=== PATIENT | male | born 1990 | race Caucasian/White ===

== ENCOUNTER 2022-05-24 18:34 | Inpatient (IN) | payer SELFPAY ==
--- NOTE | 2022-05-24 | XR_ITS ---
WS: [id number] XR chest 1V 10929 REASON FOR EXAM: DONE IN ERROR, NO CHARGE TO PATIENT FINDINGS: The chest is unchanged compared to the chest is unchanged compared to 07/19/2011. The heart and mediastinum are within normal limits. Calcified granulomatous disease is present both hemithoraces. No acute pulmonary parenchymal or pleural disease. Mild thoracic scoliosis. XR/XR chest 1V [id number] IMPRESSION: No acute chest abnormality.
[2022-05-24 18:41] VITALS: BP 139/83; PULSE 76; RESP 12; TEMP 36.5; O2SAT 99
--- NOTE | 2022-05-24 18:59 | ED_ITS ---
HPI - General Adult General: Chief complaint: Psychiatric Symptoms Stated complaint: MHE Time Seen by Provider: 05/24/22 18:39 History of Present Illness: HPI: [32]yo patient w/ hx of depression BIBA for SI with severe depression. No activep jarred currently On arrival, the patient is AAOx3 and cooperative with my evaluation. No focal complaints of chest pain, shortness of breath, palpitations, N/V, focal GI/ complaints. Currently denies HI. No complaints of hallucinations. Onset: acute on chronic Duration: ongoing Location: home Severity: severe Associated symptoms: Deny chest pain, dyspnea, nausea, rash, palpitations or vomiting Review of Systems Const: Denies: fever(s) or chills Eyes: Denies: change in vision ENMT: Denies: mouth pain Card: Denies: chest pain or palpitations Resp: Denies: dyspnea or non-productive cough GI: Denies: abdominal pain, nausea, vomiting or diarrhea : Denies: dysuria Musc: Denies: extremity pain Skin/Breast: Denies: rash or new lesions Neuro: Denies: weakness in extremities Psych: Reports: depression and suicidal ideation Zaid/Lymph: Denies: easy bruising PFSH ED PFSH: Medical History Depression Social History Smoking and tobacco status: never smoked Alcohol intake: never Substance/Drug Use: former Physical Exam Const: COMMON NORMALS: alert HENMT: COMMON NORMALS: atraumatic HEAD & SCALP: atraumatic MOUTH: moist mucous membranes not abnormal Eye: COMMON NORMALS: EOMs intact bilaterally and conjunctivae normal CONJUNCTIVA: Yes conjunctivae normal Neck/C-Spine: COMMON NORMALS: full ROM and supple Resp: COMMON NORMALS: normal respiratory effort and clear to auscultation bilaterally AUSCULTATION: clear to auscultation bilaterally Cardio: COMMON NORMALS: regular rate RATE: regular rate GI: COMMON NORMALS: Soft to palpation and non-tender PALPATION: Yes Soft to palpation Extremity: COMMON NORMALS: full ROM Neuro: SENSORIUM/ORIENTATION: Yes alert MOTOR EXAM: No Abnormal motor strength present and Other motor observations present (no focal motor deficits) Psych: COMMON NORMALS: speech normal SPEECH: Yes normal speech MOOD & AFFECT: Yes depressed mood Course Vital Signs: Vital signs: Vital Signs Temperature 97.7 F 05/24/22 18:41 Pulse Rate 76 05/24/22 18:41 Respiratory Rate 12 05/24/22 18:41 Blood Pressure 139/83 05/24/22 18:41 Pulse Oximetry 99 05/24/22 18:41 MDM - General Adult Medical Decision Making [32]yo patient w/ hx of depression presenting for depression with SI. HDS, exam within normal limit Thoughts are linear and organized, and the patient has no AH/VH, or HI. Clinically the patient displays no overt toxidrome; they are well appearing, with low suspicion for toxic ingestion given history and exam. Symptoms unlikely 2/2 anemia, hypothyroidism, infection, or ICH. Workup: CBC, CMP, Lipase, salicylate/tylenol, UDS Lab findings: wnl, +amphetamine in the urine [9:01pm] On reassessment, labs and workup wnl. Patient is hemodynamically stable with no acute medical complaints. Case discussed with psychiatric provider Dr. Klein at [facility] psych inpatient with recommendation for admission Disposition: Psych Lab Data : 05/24/22 18:49 05/24/22 18:49 Laboratory Results WBC 5.8 10^3/uL (4.0-10.0) 05/24/22 18:49 RBC 4.89 10^6/uL (4.1-5.3) 05/24/22 18:49 Hgb 14.8 g/dL (11.7-16.6) 05/24/22 18:49 Hct 42.9 % (42.0-52.0) 05/24/22 18:49 MCV 87.7 fl (80-94) 05/24/22 18:49 MCH 30.3 pg (28.0-34.0) 05/24/22 18:49 MCHC 34.5 g/dL (30.0-36.0) 05/24/22 18:49 RDW 12.9 % (12.1-15.1) 05/24/22 18:49 Plt Count 214 10^3/cmm (130-400) 05/24/22 18:49 MPV 11.0 fL (7.4-10.4) H 05/24/22 18:49 Neut % (Auto) 54.3 % 05/24/22 18:49 Lymph % (Auto) 34.3 % 05/24/22 18:49 [place] % (Auto) 7.7 % 05/24/22 18:49 Eos % (Auto) 2.8 % 05/24/22 18:49 Baso % (Auto) 0.7 % 05/24/22 18:49 Neut # (Auto) 3.13 10^3/uL (1.8-7.7) 05/24/22 18:49 Lymph # (Auto) 2.0 10^3/uL (0.8-4.8) 05/24/22 18:49 [place] # (Auto) 0.4 10^3/uL (0.2-0.9) 05/24/22 18:49 Eos # (Auto) 0.2 10^3/uL (0.0-0.8) 05/24/22 18:49 Baso # (Auto) 0.0 10^3/uL (0.0-0.1) 05/24/22 18:49 Nucleated RBC % (auto) 0 % 05/24/22 18:49 Nucleated RBCs # 0.0 /100WBC 05/24/22 18:49 Sodium 142 mmol/L (136-145) 05/24/22 18:49 Potassium 4.0 mmol/L (3.5-5.1) 05/24/22 18:49 Chloride 102 mmol/L (98-107) 05/24/22 18:49 Carbon Dioxide 32 mmol/L (22-29) H 05/24/22 18:49 Anion Gap 12.0 (5-19) 05/24/22 18:49 BUN 12 mg/dL (6-20) 05/24/22 18:49 Creatinine 0.9 mg/dL (0.7-1.2) 05/24/22 18:49 GFR Calculation 97.8 mL/min (90-130) 05/24/22 18:49 Glucose 95 mg/dL (65-115) 05/24/22 18:49 Calculated Osmolality 294 mOsm/kg (285-295) 05/24/22 18:49 Calcium 9.9 mg/dL (8.5-10.5) 05/24/22 18:49 Total Bilirubin 0.3 mg/dL (0.15-1.2) 05/24/22 18:49 AST 13 U/L (0-40) 05/24/22 18:49 ALT 12 U/L (0-41) 05/24/22 18:49 Alkaline Phosphatase 66 IU/L (40-130) 05/24/22 18:49 Total Protein 7.2 g/dL (6.6-8.7) 05/24/22 18:49 Albumin 4.8 g/dL (3.5-5.2) 05/24/22 18:49 Globulin 2.4 g/dL (1.3-4.6) 05/24/22 18:49 Lipase 23 U/L (13-60) 05/24/22 18:49 Salicylates < 0.3 mg/dL (3-10) L 05/24/22 18:49 Urine Opiates Screen Negative ng/mL (Negative) 05/24/22 19:04 Acetaminophen < 5.0 ug/mL (10-30) L 05/24/22 18:49 Ur Barbiturates Screen Negative ng/mL (Negative) 05/24/22 19:04 Ur Phencyclidine Scrn Negative ng/mL (Negative) 05/24/22 19:04 Ur Amphetamines Screen Positive ng/mL (Negative) H 05/24/22 19:04 U Benzodiazepines Scrn Negative ng/mL (Negative) 05/24/22 19:04 Urine Cocaine Screen Negative ng/mL (Negative) 05/24/22 19:04 U Marijuana (THC) Screen Positive ng/mL (Negative) H 05/24/22 19:04 Discharge Plan Discharge Patient Disposition: Admitted As Inpatient Clinical Impression: Depression with suicidal ideation Condition: Stable Coding Level of Care Code ED Ship Cleaner for Marilee Fwd Exam Comprehensive
[2022-05-24 19:19] LABS: Basophils % 0.7 %; Eosinophils # 0.2 10^3/uL (0.0-0.8); Eosinophils % 2.8 %; Hematocrit 42.9 % (42.0-52.0); Hemoglobin 14.8 g/dL (11.7-16.6); Lymphocytes % 34.3 %; Mean Corpuscular HGB Conc 34.5 g/dL (30.0-36.0); Mean Corpuscular Hemoglobin 30.3 pg (28.0-34.0); Mean Corpuscular Volume 87.7 fl (80-94); Monocytes # 0.4 10^3/uL (0.2-0.9); Monocytes % 7.7 %; Neutrophils # 3.13 10^3/uL (1.8-7.7); Neutrophils % 54.3 %; Nucleated Red Blood Cells % 0 %; Platelet Count 214 10^3/cmm (130-400); Red Blood Count 4.89 10^6/uL (4.1-5.3); Red Cell Distribution Width 12.9 % (12.1-15.1); White Blood Count 5.8 10^3/uL (4.0-10.0)
[2022-05-24 19:34] LABS: Alanine Aminotransferase 12 U/L (0-41); Albumin Level 4.8 g/dL (3.5-5.2); Alkaline Phosphatase 66 IU/L (40-130); Aspartate Amino Transferase 13 U/L (0-40); Blood Urea Nitrogen 12 mg/dL (6-20); Calcium 9.9 mg/dL (8.5-10.5); Carbon Dioxide 32 mmol/L (22-29); Chloride 102 mmol/L (98-107); Globulin 2.4 g/dL (1.3-4.6); Glomerular Filtration Rate 97.8 mL/min (90-130); Glucose 95 mg/dL (65-115); Lipase 23 U/L (13-60); Osmolality Calculated 294 mOsm/kg (285-295); Sodium 142 mmol/L (136-145); Total Bilirubin 0.3 mg/dL (0.15-1.2); Total Protein 7.2 g/dL (6.6-8.7)
[2022-05-24 19:35] LABS: Acetaminophen < 5.0 ug/mL (10-30); Salicylate < 0.3 mg/dL (3-10)
[2022-05-24 19:54] LABS: Amphetamines Screen Urine Positive (Negative); Barbiturates Screen Urine Negative (Negative); Benzodiazepines Screen Urine Negative (Negative); Cocaine Screen Urine Negative (Negative); Opiate Screen Urine Negative (Negative); PCP Screen Urine Negative (Negative); THC Screen Urine Positive (Negative)
--- NOTE | 2022-05-25 07:15 | PC.NURSE ---
Rounded on pt. pt sleeping with respirations even and unlabored at this time. Sitter at bedside. Will continue to monitor.
[2022-05-25 08:52] VITALS: BP 113/66; PULSE 98; RESP 16; O2SAT 99
[2022-05-25 11:49] VITALS: BP 121/63; PULSE 73; RESP 16; O2SAT 96
[2022-05-25 13:18] VITALS: BP 112/60; PULSE 78; RESP 20; TEMP 36.7; O2SAT 98
[2022-05-25 14:00] VITALS: BP 135/74; PULSE 88; RESP 17; TEMP 36.9; O2SAT 98
[2022-05-25 20:46] VITALS: BP 104/64; PULSE 89; RESP 18; TEMP 36.6; O2SAT 98
[2022-05-26 06:00] VITALS: BP 99/63; PULSE 86; RESP 18; TEMP 36.5; O2SAT 99
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
[2022-05-26 14:00] VITALS: BP 112/74; PULSE 64; RESP 15; TEMP 36.4; O2SAT 98
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
[2022-05-26 19:36] VITALS: BP 112/74; PULSE 64; RESP 15; TEMP 36.4; O2SAT 98
[2022-05-26 20:31] VITALS: BP 106/64; PULSE 67; RESP 18; TEMP 36.6; O2SAT 98
== END 2022-05-26 20:52 | disposition home or self-care (01) | DRG 881 ==
LOC: ER 05-25 01:08 → ER IP 05-25 11:34 → NP 05-25 12:06
PROVIDERS: Admitting Provider Psychiatry & Neurology Psychiatry; Emergency Provider Emergency Medicine; Visit Provider Psychiatry & Neurology Psychiatry
DX: F32.A Depression, unspecified (principal); R45.851 Suicidal ideations; F11.20 Opioid dependence, uncomplicated; Z91.51 Personal history of suicidal behavior; Z62.819 Personal history of unspecified abuse in childhood
CPT/HCPCS: 71045; 80053; 80306; 80307; 83690; 85025; 97150; 97165; 99285